=== PATIENT | male | born 1975 | race Caucasian/White ===

== ENCOUNTER 2018-06-10 17:14 | Emergency (ER) | payer SELFPAY ==
[~2018-06-10] VITALS: Ht 193 cm; Wt 92.0 kg
[2018-06-10] MEDS ORDERED: MOTRIN800 MG PO (18:00)
[2018-06-10 18:10] VITALS: BP 112/81
[2018-06-10] MEDS ORDERED: no home meds (18:11)
== END 2018-06-10 18:10 | disposition home or self-care (01) | DRG 914 ==
LOC: ED 17:14
DX: S16.9XXA Unspecified injury of muscle, fascia and tendon at neck level, initial encounter (principal); X00.4XXA Hit by object from burning building or structure in uncontrolled fire, initial encounter; Y92.009 Unspecified place in unspecified non-institutional (private) residence as the place of occurrence of the external cause